=== PATIENT | male | born 1970 | race Caucasian/White ===

== ENCOUNTER 2022-01-25 10:18 | Emergency (ER) | payer OTHER ==
[2022-01-25 11:20] LABS: HEMOGLOBIN 14.8 gm/dl (14.0-17.5); RED BLOOD COUNT 4.9 M/UL (4.20-5.50); WHITE BLOOD COUNT 7.1 K/UL (4.5-11.0)
[2022-01-25 11:38] LABS: BUN/CREATININE RATIO 14 (0-10)
== END 2022-01-25 20:25 | disposition short-term general hospital (02) ==
LOC: ER1 10:18
PROVIDERS: Emergency Medicine
DX: R00.1 Bradycardia, unspecified (principal); R10.9 Unspecified abdominal pain; R11.0 Nausea; R10.816 Epigastric abdominal tenderness; I10 Essential (primary) hypertension; F17.210 Nicotine dependence, cigarettes, uncomplicated
CPT/HCPCS: 80053; 81001; 82550; 82553; 83605; 83690; 84484; 85025; 93005; 96361; 96374; 96375; 96376; 99285; C9113; J1170; J2250; J2270; J2405; Q9967